=== PATIENT | female | born 1990 | race Caucasian/White ===

== ENCOUNTER 2018-03-17 10:59 | Emergency (ER) | payer OTHER ==
[~2018-03-17] VITALS: Ht 154.9 cm; Wt 104.8 kg
[2018-03-17 11:08] VITALS: BP 122/71
--- NOTE | 2018-03-17 11:12 | NUR ---
patient given ua cup and cup of water and notified need for urine sample. patient verbalized understanding.
--- NOTE | 2018-03-17 11:12 | NUR ---
PT AMBULATES TO BED 11
--- NOTE | 2018-03-17 11:12 | NUR ---
28f bib significant other with c/o 05/06 bl lower back pain d/t lifting approximately 25 lbs at work yesterday. Patient sts pain radiaites to bl lower abd. Patient denies any urinary or bowel incontinence. Patient with steady gait but pain worse with walking and movement. Pt is aox4. gcs=15. RR are even and unlabored. Patient changed into gown. Awaiting er md jenkins. VSS. Will continue to monitor.
--- NOTE | 2018-03-17 12:05 | NUR ---
awating xray; ua collected; pt with no complaints; all needs met at this time.
[2018-03-17] MEDS ORDERED: IBUPROFEN 600 MG TAB PO ONE (12:15)
[2018-03-17] MEDS ORDERED: traMADol 50 MG TAB PO ONE (12:15)
[2018-03-17 12:41] LABS: BARBITURATE, URINE NEG. ng/ml (NEG <=200); BENZODIAZEPINE, URINE NEG. ng/mL (NEG <=200); CANNABINOID, URINE NEG. ng/mL (NEG <=50); COCAINE, URINE NEG. ng/mL (NEG <=300); OPIATE, URINE NEG. ng/mL (NEG <=2000); PHENCYCLIDINE SCREEN,URINE NEG. ng/mL (NEG <=25)
[2018-03-17 12:53] VITALS: BP 117/70
== END 2018-03-17 12:53 | disposition home or self-care (01) ==
LOC: MED 10:59
DX: G89.29 Other chronic pain (principal); M54.5 Low back pain; E66.01 Morbid (severe) obesity due to excess calories; Z68.41 Body mass index [BMI] 40.0-44.9, adult
CPT/HCPCS: 80305; 81025; 99283

== ENCOUNTER 2018-04-02 21:09 | Emergency (ER) | payer OTHER ==
[~2018-04-02] VITALS: Ht 154.9 cm; Wt 106.7 kg
[2018-04-02 21:15] VITALS: BP 112/60
--- NOTE | 2018-04-02 21:19 | NUR ---
28/F CAME IN W C/O VAGINAL BLEEDING FOR 3 MONTHS, PT REPORTS BRIGHT RED BLOOD TINGED NOTICED WHILE WIPING. DENIES ANY PAIN AT THIS TIME, BUT REPORTED INTERMITTENT PELVIC AND BACK PAIN. LMP 03/24/18. PMH: ANEMIA, GESTATIONAL DIABETS
--- NOTE | 2018-04-02 21:19 | NUR ---
TO BED # 12 AMBULATORY, REPORT GIVEN TO MIR MADISON.
[2018-04-02 21:58] LABS: BASOPHILS % (AUTO) 0.2 % (0.0-2.0); EOSINOPHILS # (AUTO) 0.2 K/uL (0-0.4); EOSINOPHILS % (AUTO) 1.4 % (0.0-4.0); HEMATOCRIT 38.3 % (36-48); HEMOGLOBIN 11.9 g/dL (12.0-16.0); LYMPHOCYTES # (AUTO) 2.9 K/uL (2.5-16.5); LYMPHOCYTES % (AUTO) 23.1 % (20.5-51.1); MEAN CORPUSCULAR HEMOGLOBIN 23 pg (27-31); MEAN CORPUSCULAR HGB CONC 31 g/dL (33-37); MONOCYTES # (AUTO) 0.8 K/uL (0.8-1.0); MONOCYTES % (AUTO) 6.2 % (1.7-9.3); NEUTROPHILS # (AUTO) 8.7 K/uL (1.8-7.7); NEUTROPHILS % (AUTO) 69.1 % (42.2-75.2); PLATELET COUNT (AUTO) 352 K/uL (140-450); RED BLOOD CELL COUNT(AUTO) 5.18 MIL/uL (4.20-5.40); RED CELL DISTRIBUTION WIDTH 17.3 % (11.6-13.7); WHITE BLOOD COUNT (AUTO) 12.6 K/uL (4.8-10.8)
[2018-04-02 22:15] LABS: ANION GAP 11.2 (8-16); CARBON DIOXIDE 28.5 mmol/L (21-32); CREATININE 0.7 mg/dL (0.6-1.3); POTASSIUM 3.7 mmol/L (3.5-5.1)
[2018-04-02 22:16] LABS: APPEARANCE,URINE CLEAR (CLEAR); BILIRUBIN,URINE NEGATIVE (NEGATIVE); BLOOD, URINE 1+ (NEGATIVE); COLOR,URINE YELLOW (YELLOW); LEUKOCYTE ESTERASE ,URINE NEGATIVE (NEGATIVE); NITRITE, URINE NEGATIVE (NEGATIVE); PH,URINE 6.5 (5.0-9.0); UGLUCOSE NEGATIVE (NEGATIVE)
--- NOTE | 2018-04-02 23:00 | NUR ---
Patient appears to be resting comfortably in bed. Vital Signs within normal limits. Respirations even and unlabored.
[2018-04-03 00:07] VITALS: BP 127/71
--- NOTE | 2018-04-03 00:07 | NUR ---
Patient discharged with v/s stable. Written and verbal after care instructions given and explained. Patient verbalized understanding. Ambulatory with steady gait. All questions addressed prior to discharge. Advised to follow up with PMD.
[2018-04-03 00:12] LABS: RBC,URINE 0-5 (RARE) /HPF (0-5); WBC,URINE 0-5 (RARE) /HPF (0-5)
== END 2018-04-03 00:07 | disposition home or self-care (01) ==
LOC: MED 21:09
DX: N93.8 Other specified abnormal uterine and vaginal bleeding (principal); Z90.49 Acquired absence of other specified parts of digestive tract
CPT/HCPCS: 36415; 80048; 81001; 81025; 85025; 99284

== ENCOUNTER 2018-11-05 21:28 | Emergency (ER) | payer OTHER ==
[~2018-11-05] VITALS: Ht 154.9 cm; Wt 100.4 kg
[2018-11-05 21:40] VITALS: BP 126/69
--- NOTE | 2018-11-05 21:43 | NUR ---
TO LOBBY A/W BED, AMBULATORY, VSS ERMD NOTED
--- NOTE | 2018-11-05 21:55 | NUR ---
PT TAKEN TO BED 6
--- NOTE | 2018-11-05 21:55 | NUR ---
ASSUMED CARE OF PT AT THIS TIME. C/O SUDDEN ONSET RIGHT FLANK W/ NAUSEA X 12 HOURS. NO VOMITING. AAOX4 WITH EVEN AND STEADY GAIT; PATIENT STATES PAIN OF 7/10; VSS; PATIENT POSITIONED FOR COMFORT; HOB ELEVATED; BEDRAILS UP X2; BED DOWN. ER MD MADE AWARE OF PT STATUS. WILL CONTINUE TO MONITOR.
[2018-11-05] MEDS ORDERED: NACL 0.9% 1,000 ML IV SCH (22:15)
[2018-11-05] MEDS ORDERED: KETOROLAC 30 MG/ML VIAL IVP ONE (22:15)
[2018-11-05 22:42] LABS: APPEARANCE,URINE CLEAR (CLEAR); BILIRUBIN,URINE NEGATIVE (NEGATIVE); BLOOD, URINE 3+ (NEGATIVE); COLOR,URINE YELLOW (YELLOW); LEUKOCYTE ESTERASE ,URINE TRACE (NEGATIVE); NITRITE, URINE NEGATIVE (NEGATIVE); PH,URINE 7.5 (5.0-9.0); UGLUCOSE NEGATIVE (NEGATIVE)
[2018-11-05 22:46] LABS: BASOPHILS % (AUTO) 0.4 % (0.0-2.0); EOSINOPHILS # (AUTO) 0.1 K/uL (0-0.4); EOSINOPHILS % (AUTO) 0.8 % (0.0-4.0); HEMATOCRIT 37.8 % (36-48); HEMOGLOBIN 11.9 g/dL (12.0-16.0); LYMPHOCYTES % (AUTO) 24.2 % (20.5-51.1); MEAN CORPUSCULAR HEMOGLOBIN 25 pg (27-31); MEAN CORPUSCULAR HGB CONC 32 g/dL (33-37); MEAN CORPUSCULAR VOLUME 77.9 fL (80-94); MONOCYTES # (AUTO) 0.9 K/uL (0.8-1.0); MONOCYTES % (AUTO) 7.1 % (1.7-9.3); NEUTROPHILS # (AUTO) 8.4 K/uL (1.8-7.7); NEUTROPHILS % (AUTO) 67.5 % (42.2-75.2); PLATELET COUNT (AUTO) 326 K/uL (140-450); RED BLOOD CELL COUNT(AUTO) 4.85 MIL/uL (4.20-5.40); RED CELL DISTRIBUTION WIDTH 16.8 % (11.6-13.7); WHITE BLOOD COUNT (AUTO) 12.5 K/uL (4.8-10.8)
[2018-11-05 22:56] LABS: ANION GAP 4.4 (8-16); CARBON DIOXIDE 28.4 mmol/L (21-32); CREATININE 0.8 mg/dL (0.6-1.3); POTASSIUM 3.8 mmol/L (3.5-5.1)
[2018-11-05 23:01] LABS: ALBUMIN 3.5 g/dL (3.4-5.0); TOTAL BILIRUBIN 0.2 mg/dL (0.0-1.0)
[2018-11-05 23:03] LABS: RBC,URINE >100 /HPF (0-5); WBC,URINE 0-5 (RARE) /HPF (0-5)
--- NOTE | 2018-11-05 23:07 | NUR ---
PT RETURN FROM CT
--- NOTE | 2018-11-05 23:55 | NUR ---
Dr. Escamilla evaluating patient at bedside.
[2018-11-06 00:10] VITALS: BP 118/64
--- NOTE | 2018-11-06 00:10 | NUR ---
Patient discharged with v/s stable. Written and verbal after care instructions given and explained. Patient alert, oriented and verbalized understanding of instructions. Ambulatory with steady gait. All questions addressed prior to discharge. ID band removed. Patient advised to follow up with PMD. Rx of MOTRIN AND ZOFRAN given. Patient educated on indication of medication including possible reaction and side effects. Opportunity to ask questions provided and answered.
== END 2018-11-06 00:10 | disposition home or self-care (01) ==
LOC: MED 21:28
DX: R10.9 Unspecified abdominal pain (principal); R11.0 Nausea; Z90.49 Acquired absence of other specified parts of digestive tract
CPT/HCPCS: 36415; 74176; 80053; 81001; 81025; 83690; 85025; 96374; 99284; J1885; J7030